=== PATIENT | female | born 1985 | race Caucasian/White ===

== ENCOUNTER 2020-10-16 13:42 | Outpatient (REF) | payer BC, SELFPAY ==
--- NOTE | ~2020-10-16 | XR_ITS ---
EXAMINATION: XR LUMBOSACRAL SPINE CLINICAL INFORMATION: Lower back pain. COMPARISON: None TECHNIQUE: Three views of the lumbosacral spine. FINDINGS: There is normal lumbar lordosis. There is mild loss of L4-L5 disc height. Rest of the disc heights, vertebral heights and alignment is normal. No visible acute fracture, dislocation or lytic process. The SI joints are symmetrical and normal. XR/XR lumbar spine 2-3V IMPRESSION: Mild loss of L4-L5 disc height. Otherwise unremarkable lumbar spine exam.
== END 2020-10-16 13:43 | disposition home or self-care (01) ==
LOC: HO.HMGCX 13:42
PROVIDERS: PCP Internal Medicine; Visit Provider Internal Medicine
DX: G89.29 Other chronic pain (principal); M54.9 Dorsalgia, unspecified
CPT/HCPCS: 72100

== ENCOUNTER → 2020-11-05 15:43 | Outpatient (REF) | payer BC, SELFPAY ==
--- NOTE | 2020-11-05 15:47 | ECG_ITS ---
Test Reason : ORTHOSTATIC HYPOTENS Blood Pressure : / mmHG Vent. Rate : 077 BPM Atrial Rate : 077 BPM P-R Int : 138 ms QRS Dur : 068 ms QT Int : 396 ms P-R-T Axes : 061 068 061 degrees QTc Int : 448 ms Normal sinus rhythm Normal ECG No previous ECGs available Referred By: Franchesca Siddiqui Electronically Signed By:Julio Manning
== END ==
LOC: HO.CARD 15:43
PROVIDERS: Visit Provider Family Medicine
DX: I95.1 Orthostatic hypotension (principal)
CPT/HCPCS: 93005